=== PATIENT | female | born 1995 | race Caucasian/White ===

== ENCOUNTER 2017-05-04 21:06 | Emergency (ER) | payer BC ==
[2017-05-04 21:32] VITALS: O2SAT 96
[2017-05-04] MEDS ORDERED: NS 1,000 ML IV ONE (21:35)
[2017-05-04 21:53] LABS: COLOR YELLOW; LEUKOCYTE ESTERASE,URINE NEGATIVE (NEGATIVE); NITRITE,URINE NEGATIVE (NEGATIVE); PH,URINE 5.5 (5.0-7.5)
--- NOTE | 2017-05-04 21:54 | EDPHY ---
H & P Stated Complaint: fever (tmax 102F) x 1 week with nausea/VILLALBA/R flank pain/body aches Time Seen by Provider: 05/04/17 21:35 HPI/ROS: CHIEF COMPLAINT: Intermittent fevers, headaches, nausea HISTORY OF PRESENT ILLNESS: This is a 21-year-old female presents to the emergency department reporting one-week history of intermittent fevers, T-max of 102, associated with fatigue, headache, generalized body aches, mild low back pain, and chest pain today. Patient's chest pain was described as pleuritic discomfort in the left anterior chest. Associated with some shortness of breath. Patient's symptoms have been well controlled with Tylenol or ibuprofen. There has been no vomiting, no rash, no palpitations, no urinary complaints, no lightheadedness. Very mild nasal discharge. Minimal cough. Patient was in [place] at the end of March. No other travel. Has noted several mosquito bites. No tick bites. No rash. REVIEW OF SYSTEMS: Aside from elements discussed in the HPI, a comprehensive 10-point review of systems was reviewed and is negative. PAST MEDICAL HISTORY: Denies. Oral control pills. SOCIAL HISTORY: Nonsmoker. [employer] graduate. VITAL SIGNS Reviewed by me. GENERAL: Well-developed, well-nourished, resting comfortably in no respiratory distress. HEENT: Atraumatic. Eyes: No icterus, no injection. Left tympanic membrane slightly erythematous. Mouth: moist mucous membranes. No erythema or lesions. Neck: supple with no adenopathy. LUNGS: Clear to auscultation bilaterally, no wheezes, rhonchi or rales. CARDIAC: Regular rate and rhythm, no rubs, murmurs or gallops. ABDOMEN: Soft, very mild left lower quadrant tenderness to palpation. Nondistended, bowel sounds normal. BACK: No CVA tenderness. EXTREMITIES: No trauma. No edema. Range of motion is normal throughout. NEURO: Alert and oriented, grossly nonfocal. SKIN: Warm and dry, no rash. PSYCHIATRIC: Normal mentation, no agitation. - Personal History LMP (Females 10-55): 1-7 Days Ago Current Tetanus Diphtheria and Acellular Pertussis (TDAP): Yes - Medical/Surgical History Hx Asthma: No Hx Chronic Respiratory Disease: No Hx Diabetes: No Hx Cardiac Disease: No Hx Renal Disease: No Hx Cirrhosis: No Hx Alcoholism: No Hx HIV/AIDS: No Hx Splenectomy or Spleen Trauma: No Other PMH: polycystic ovary - Social History Smoking Status: Never smoked Constitutional: Initial Vital Signs Temperature (C) 37.1 C 05/04/17 21:29 Heart Rate 69 05/04/17 21:29 Respiratory Rate 16 05/04/17 21:29 Blood Pressure 118/66 05/04/17 21:29 O2 Sat (%) 96 05/04/17 21:29 O2 Delivery Mode Room Air Allergies/Adverse Reactions: Penicillins Allergy (Verified 05/04/17 21:28) Home Medications: Medication Instructions Recorded Control Pill 05/04/17 Medical Decision Making - Diagnostics Imaging Results: Imaging Impressions Chest X-Ray 05/04/17 22:12 Impression: Normal chest. Imaging: Discussed imaging studies w/ high pressure firer Radiologist, I viewed and interpreted images myself ED Course/Re-evaluation: 21-year-old female presenting with a week ago and fevers, malaise, headache, and nausea. Not confused. No neurologic symptoms of numbness or tingling. She developed some left-sided chest discomfort earlier today which has resolved on my examination. Minimal cough. Patient had IV established and she received a L normal saline. Laboratory evaluation including a CBC (remarkable for a white count of 12), electrolytes, LFTs, and urinalysis are all largely unremarkable. Patient is perc negative, as on further evaluation her control pill is progesterone only and does not contain estrogen component. She had a D-dimer which had been ordered prior to this history being obtained. D-dimer is slightly elevated 0.53. A long discussion was held with the patient as well as her mother. I do not believe that the patient's presenting complaints of headache, fever, malaise, nausea are related to a pulmonary embolism. She did report slight pleuritic discomfort in the left lower chest earlier today, however it has largely resolved. She does not appear to be toxic. She and her mother are comfortable and would prefer to be discharged with no further evaluation for pulmonary embolism. I believe this is a very reasonable. Urine was sent for culture. It does have a trace amount of bacteria. Chest x-ray was reviewed by myself at Dr. Hoang Rosa. No infiltrate is visualized. Patient will follow up with her primary care physician, and was given referral to outpatient medicine, she is not improving as expected in the next several days. Differential Diagnosis: Differential diagnosis for fever in adults was considered including but not limited to pneumonia, urinary tract infection, viral syndrome, West Nile virus, mosquito or tick borne illness, and influenza. - Data Points Laboratory Results: Laboratory Results 05/04/17 22:25 05/04/17 22:25 05/04/17 05/04/17 05/04/17 22:25 22:25 22:25 WBC 12.18 10^3/uL H 10^3/uL (3.80-9.50) RBC 4.35 10^6/uL 10^6/uL (4.18-5.33) Hgb 13.9 g/dL g/dL (12.6-16.3) Hct 38.7 % % (38.0-47.0) MCV 89.0 fL fL (81.5-99.8) MCH 32.0 pg pg (27.9-34.1) MCHC 35.9 g/dL g/dL (32.4-36.7) RDW 11.4 % L % (11.5-15.2) Plt Count 266 10^3/uL 10^3/uL (150-400) MPV 9.5 fL fL (8.7-11.7) Neut % (Auto) 67.5 % % (39.3-74.2) Lymph % (Auto) 17.2 % % (15.0-45.0) [place] % (Auto) 13.0 % % (4.5-13.0) Eos % (Auto) 1.6 % % (0.6-7.6) Baso % (Auto) 0.5 % % (0.3-1.7) Nucleat RBC Rel Count 0.0 % % (0.0-0.2) Absolute Neuts (auto) 8.22 10^3/uL H 10^3/uL (1.70-6.50) Absolute Lymphs (auto) 2.10 10^3/uL 10^3/uL (1.00-3.00) Absolute Monos (auto) 1.58 10^3/uL H 10^3/uL (0.30-0.80) Absolute Eos (auto) 0.20 10^3/uL 10^3/uL (0.03-0.40) Absolute Basos (auto) 0.06 10^3/uL 10^3/uL (0.02-0.10) Absolute Nucleated RBC 0.00 10^3/uL 10^3/uL (0-0.01) Immature Gran % 0.2 % % (0.0-1.1) Immature Gran # 0.02 10^3/uL 10^3/uL (0.00-0.10) D-Dimer 0.53 ug/mLFEU H ug/mLFEU (0.00-0.50) Sodium 139 mEq/L mEq/L (134-144) Potassium 4.0 mEq/L mEq/L (3.5-5.2) Chloride 102 mEq/L mEq/L (97-110) Carbon Dioxide 24 mEq/l mEq/l (22-31) Anion Gap 13 mEq/L mEq/L (8-16) BUN 8 mg/dL mg/dL (7-23) Creatinine 0.7 mg/dL mg/dL (0.6-1.0) Estimated GFR > 60 Glucose 98 mg/dL mg/dL (70-100) Calcium 8.8 mg/dL mg/dL (8.5-10.4) Total Bilirubin 0.7 mg/dL mg/dL (0.1-1.4) Conjugated Bilirubin 0.3 mg/dL mg/dL (0.0-0.5) Unconjugated Bilirubin 0.4 mg/dL mg/dL (0.0-1.1) AST 44 IU/L IU/L (14-46) ALT 84 IU/L H IU/L (9-52) Alkaline Phosphatase 67 IU/L IU/L (38-126) Total Protein 6.8 g/dL g/dL (6.3-8.2) Albumin 3.5 g/dL g/dL (3.5-5.0) Urine Color Urine Appearance Urine pH Ur Specific [place] Urine Protein Urine Ketones Urine Blood Urine Nitrate Urine Bilirubin Urine Urobilinogen Ur Leukocyte Esterase Urine RBC Urine WBC Ur Epithelial Cells Urine Bacteria Urine Glucose 05/04/17 21:45 WBC RBC Hgb Hct MCV MCH MCHC RDW Plt Count MPV Neut % (Auto) Lymph % (Auto) [place] % (Auto) Eos % (Auto) Baso % (Auto) Nucleat RBC Rel Count Absolute Neuts (auto) Absolute Lymphs (auto) Absolute Monos (auto) Absolute Eos (auto) Absolute Basos (auto) Absolute Nucleated RBC Immature Gran % Immature Gran # D-Dimer Sodium Potassium Chloride Carbon Dioxide Anion Gap BUN Creatinine Estimated GFR Glucose Calcium Total Bilirubin Conjugated Bilirubin Unconjugated Bilirubin AST ALT Alkaline Phosphatase Total Protein Albumin Urine Color YELLOW Urine Appearance CLEAR Urine pH 5.5 (5.0-7.5) Ur Specific [place] 1.010 (1.002-1.030) Urine Protein NEGATIVE (NEGATIVE) Urine Ketones NEGATIVE (NEGATIVE) Urine Blood NEGATIVE (NEGATIVE) Urine Nitrate NEGATIVE (NEGATIVE) Urine Bilirubin NEGATIVE (NEGATIVE) Urine Urobilinogen 0.2 EU EU (0.2-1.0) Ur Leukocyte Esterase NEGATIVE (NEGATIVE) Urine RBC NONE SEEN /hpf /hpf (0-3) Urine WBC NONE SEEN /hpf /hpf (0-3) Ur Epithelial Cells TRACE /lpf /lpf (NONE-1+) Urine Bacteria TRACE /hpf H /hpf (NONE SEEN) Urine Glucose NEGATIVE (NEGATIVE) Medications Given: Discontinued Medications Sodium Chloride (Ns) 1,000 mls @ 0 mls/hr IV ONCE ONE; Wide Open PRN Reason: Protocol Stop: 05/04/17 21:36 Last Admin: 05/04/17 21:53 Dose: 1,000 mls Departure - Departure Disposition: Home, Routine, Self-Care Clinical Impression: Fever Qualifiers: Fever type: unspecified Qualified Code(s): R50.9 - Fever, unspecified Headache Qualifiers: Headache type: unspecified Headache chronicity pattern: episodic headache Intractability: not intractable Qualified Code(s): R51 - Headache Condition: Good Instructions: Fever in Adults (ED), Viral Syndrome (ED) Additional Instructions: 1. Please drink plenty of water, get plenty of rest, control your fever with Tylenol or ibuprofen. 2. There is no pneumonia on your x-ray. There is no sign of urinary tract infection. You have no risk factors for pulmonary embolism according to the PERC criteria. 3. If your symptoms are continuing for an additional 2-3 days, I would recommend follow up with your primary care physician. 4. Please be seen sooner if you develop worsening fevers, vomiting, developed a rash, have persistent or increasing chest discomfort, developed a cough productive of sputum, developed palpitations, or other concerns, please return to the emergency department or seek care urgently. Referrals: NONE *PRIMARY CARE P,. [Primary Care Provider] - As per Instructions America Batres DO [Doctor of Osteopathy] - As per Instructions
[2017-05-04 22:01] LABS: BACTERIA TRACE /hpf (NONE SEEN); RBC,URINE NONE SEEN /hpf (0-3); WBC,URINE NONE SEEN /hpf (0-3)
[2017-05-04 22:32] LABS: % IMMATURE GRANULYOCYTES 0.2 % (0.0-1.1); ABSOLUTE IMMATURE GRANULOCYTES 0.02 10^3/uL (0.00-0.10); ADD DIFF? NO; ADD MORPH? NO; ADD SCAN? NO; ATYPICAL LYMPHOCYTE FLAG 30 (0-99); FRAGMENT RBC FLAG 0 (0-99); HEMATOCRIT 38.7 % (38.0-47.0); HEMOGLOBIN 13.9 g/dL (12.6-16.3); LEFT SHIFT FLG 0 (0-99); LIPEMIA HEMOLYSIS FLAG 90 (0-99); MEAN CELL HEMOGLOBIN CONCENTR. 35.9 g/dL (32.4-36.7); MEAN PLATELET VOLUME 9.5 fL (8.7-11.7); PLATELET CLUMPS FLAG 0 (0-99); PLATELET COUNT 266 10^3/uL (150-400); RED BLOOD CELL COUNT 4.35 10^6/uL (4.18-5.33); RED CELL DISTRIBUTION WIDTH 11.4 % (11.5-15.2)
[2017-05-04 22:47] LABS: ALANINE AMINOTRANSFERASE 84 IU/L (9-52); ALBUMIN 3.5 g/dL (3.5-5.0); ALKALINE PHOSPHATASE 67 IU/L (38-126); ANION GAP 13 mEq/L (8-16); ASPARTATE AMINOTRANSFERASE 44 IU/L (14-46); BILIRUBIN,TOTAL 0.7 mg/dL (0.1-1.4); BILIRUBIN-CONJUGATED 0.3 mg/dL (0.0-0.5); BILIRUBIN-UNCONJUGATED 0.4 mg/dL (0.0-1.1); CALCIUM 8.8 mg/dL (8.5-10.4); CARBON DIOXIDE 24 mEq/l (22-31); CHLORIDE 102 mEq/L (97-110); CREATININE 0.7 mg/dL (0.6-1.0); GLOMERULAR FILTRATION RATE > 60; GLUCOSE 98 mg/dL (70-100); SODIUM 139 mEq/L (134-144); TOTAL PROTEIN 6.8 g/dL (6.3-8.2)
[2017-05-04 23:59] VITALS: BP 110/66; PULSE 65; RESP 14; TEMP 98.4
== END 2017-05-04 23:57 | disposition home or self-care (01) ==
LOC: CED 21:06
DX: R50.9 Fever, unspecified (principal); R51 Headache
CPT/HCPCS: 71020-PO; 80048-PO; 80076-PO; 81003-PO; 81015-PO; 85025-PO; 85378-PO